=== PATIENT | female | born 1990 | race Caucasian/White ===

== ENCOUNTER 2020-09-09 06:19 | Emergency (ER) | payer OTHER, SELFPAY ==
[2020-09-09 06:29] VITALS: BP 118/72; BP 141/99; PULSE 82; PULSE 92; RESP 16; TEMP 36.1; O2SAT 100; O2SAT 95; BMI 37.0
[2020-09-09 06:36] VITALS: BP 141/99; PULSE 88; RESP 12; TEMP 36.1; O2SAT 100
--- NOTE | 2020-09-09 06:45 | ED_ITS ---
HPI - Nausea/Vomiting/Diarrhea General Chief complaint: Nausea/Vomiting/Diarrhea Stated complaint: n/v Time Seen by Provider: 09/09/20 06:45 Source: patient Mode of arrival: ambulatory History of Present Illness HPI Narrative: At 4:40am patient woke up because her baby was crying and when she got out of bed the room was spinning, nausea but no vomiting. Patient denies recent URI, tinnitus. No recent head trauma and no history of prior vertigo. Patient denies MD elicited complaint: nausea Onset (ago): hour(s) Associated nausea: Yes Related Data Previous Rx's Medication Instructions Recorded meclizine 25 mg PO TID PRN #20 tab 09/09/20 Allergies Allergy/AdvReac Type Severity Reaction Status Date / Time No Known Allergies Allergy Verified 09/09/20 06:28 Review of Systems Constitutional: Constitutional: Reports no additional constitutional complaints Eyes: Eyes: Reports no additional eye complaints ENT: Reports vertigo and Reports dizziness Cardiovascular: Cardiovascular: Reports no additional cardiovascular complaints Respiratory: Respiratory: Reports as per HPI Gastrointestinal: Gastrointestinal: Reports nausea Genitourinary: Genitourinary: Reports no additional female genitourinary complaints Musculoskeletal: Musculoskeletal: Reports no additional musculoskeletal com plaints Integumentary/Breasts: Skin/Breast: Denies rash Neurologic: Reports system reviewed and no additional complaints, except as documented, Reports vertigo, Reports dizziness and Denies Sensory deficit (Neuro) Psychiatric: Psychiatric: Denies anxiety [facility] Past Medical History Medical History (Updated 09/09/20 @ 09:19 by Maikol Soto MD) No known health problems Surgical History (Updated 09/09/20 @ 06:33 by Dania Carlos) No history of previous surgery Social History Social History Smoking Status: Never smoker Use of substances other than those prescribed or required for medical reasons: No Advance Directives: No Advance Directives Information Provided: No Physical Exam Vital Signs: Vital Signs: Last Vital Signs Temp 97 F 09/09/20 06:36 Pulse 88 09/09/20 06:36 Resp 12 09/09/20 06:36 BP 141/99 H 09/09/20 06:36 Pulse Ox 100 09/09/20 06:36 Body Mass Index 37.0 Const: General: healthy appearing Nutritional Appearance: average body habitus Orientation/consciousness: oriented to person and patient oriented x3 Limitations: no limitations HENMT: Head: Yes normal to inspection Ears: external ears normal and TM's normal bilaterally General nose exam: Normal external nose present Mouth: Normal oral and palatal mucosa present and oropharynx normal Throat: Yes posterior oropharynx normal Eyes: General: appearance normal, both eyes and all related structures Neck: Other: supple Neck: Yes normal visual inspection Chest: Chest palpation & inspection: normal inspection of the chest Resp: Auscultation: clear to auscultation bilaterally Cardio: Jugular venous distension: no JVD Rate: regular rate Rhythm: regular rhythm Heart sounds: S1 normal heart sound present and S2 normal heart sound present GI: Inspection: Yes normal to inspection Palpation (GI): Soft to palpation, nontender and No hepatosplenomegaly present Auscultation: normal bowel sounds : General: Yes no CVA tenderness Back/Spine/Pelvis: Back: no CVA tenderness Skin: General skin exam: no rashes or lesions noted Neuro: Other: no nystagmus on lateral gaze, positive Barrone on position movement General: oriented to person and patient oriented x3 Cranial nerves: Yes CN's II-XII intact bilaterally Motor exam (neuro): 5/5 motor strength present throughout Sensory Exam: No Sensory deficit (Neuro) Extrem: General: Yes normal to inspection Psych: Appearance: grossly normal Course Course Course Narrative: ambulated to the bathroom, feels better MDM - Nausea/Vomiting/Diarrhea MDM Narrative Medical decision making narrative: Patient with benign positional vertigo will dc on meclizine Lab Data Result diagrams: 09/09/20 07:08 09/09/20 07:08 Labs: Lab Results 09/09/20 09/09/20 09/09/20 Range/Units 07:08 07:08 07:45 WBC 9.7 (4.8-10.8) X10*3/uL RBC 4.63 (4.20-5.50) X10*6/uL Hgb 12.2 (12.0-16.0) g/dl Hct 38.5 (37-47) % MCV 83.2 (80-98) fL MCH 26.3 L (27.0-33.0) pg MCHC 31.7 (31.0-35.0) g/dl RDW 15.7 (11.0-16.0) % Plt Count 266 (160-400) X10*3/uL MPV 10.9 (9.4-12.3) fL Immature Gran % (Auto) 0.2 (0.0-0.4) % Neut % (Auto) 66.8 (45-73) % Lymph % (Auto) 21.0 (20-40) % [place] % (Auto) 10.5 (2-11) % Eos % (Auto) 1.3 (0-4) % Baso % (Auto) 0.2 (0-2) % Lymph # (Auto) 2.0 (1.2-4.9) X10*3/uL [place] # (Auto) 1.0 (0.1-1.2) X10*3/uL Eos # (Auto) 0.1 (0.0-0.4) X10*3/uL Baso # (Auto) 0.0 (0.0-0.2) X10*3/uL Abs Immat Gran (auto) 0.02 (0.00-0.03) X10*3/uL Absolute Neuts (auto) 6.5 (2.0-8.3) X10*3/uL Absolute Nucleated RBC 0.000 (0.0-0.012) X10*3/uL Nucleated RBC % (auto) 0.0 (0.0-0.2) /100WBC Sodium 137 (135-145) mmol/L Potassium 3.6 (3.3-5.1) mmol/l Chloride 105 (96-108) mmol/L Carbon Dioxide 26 (22-29) mmol/L Anion Gap 10 L (12-20) BUN 9 (9-16) mg/dL Creatinine 0.72 (0.5-1.4) mg/dL Estim Creat Clear Calc 132.2 Estimated GFR > 60 Random Glucose 90 (60-115) mg/dL Calcium 8.3 L (8.4-10.2) mg/dL Urine Color PINK Urine Appearance CLOUDY Urine pH 6.0 (5.0-8.0) Ur Specific [place] 1.015 (1.005-1.025) Urine Protein NEG (NEG-TRACE) MG/DL Urine Glucose (UA) NEG (NEG) MG/DL Urine Ketones NEG (NEG) MG/DL Urine Blood 3+ H (NEG) Urine Nitrite NEG (NEG) Ur Leukocyte Esterase NEG (NEG) Urine RBC TNTC H (0) /HPF Urine WBC 0-2 (0-4) /HPF Ur Squamous Epith Cells 1+ /LPF Urine Bacteria NONE /LPF Urine Test NEGATIVE (NEGATIVE) Discharge Plan Discharge Clinical Impression: Benign paroxysmal positional vertigo Qualifiers: Laterality: unspecified laterality Qualified Code(s): H81.10 - Benign paroxysmal vertigo, unspecified ear Patient Disposition: Home, Self-Care Instructions: Benign Paroxysmal Positional Vertigo (ED) Prescriptions: New meclizine 25 mg tablet 25 mg PO TID PRN (Reason: dizziness) Qty: 20 RF: 0
[2020-09-09 07:14] LABS: MANUAL DIFF FLAG NO
[2020-09-09 07:17] LABS: Basophils Percent Auto 0.2 % (0-2); Eosinophils Absolute Auto 0.1 X10*3/uL (0.0-0.4); Eosinophils Percent Auto 1.3 % (0-4); Hematocrit 38.5 % (37-47); Hemoglobin 12.2 g/dl (12.0-16.0); Imm Gran Abs Auto 0.02 X10*3/uL (0.00-0.03); Imm Gran Pct Auto 0.2 % (0.0-0.4); Mean Corpuscular HGB Conc 31.7 g/dl (31.0-35.0); Mean Corpuscular Hemoglobin 26.3 pg (27.0-33.0); Mean Corpuscular Volume 83.2 fL (80-98); Mean Platelet Volume 10.9 fL (9.4-12.3); Monocytes Percent Auto 10.5 % (2-11); Neutrophils Absolute Auto 6.5 X10*3/uL (2.0-8.3); Neutrophils Percent Auto 66.8 % (45-73); Platelet Count 266 X10*3/uL (160-400); Red Blood Count 4.63 X10*6/uL (4.20-5.50); Red Cell Distribution Width 15.7 % (11.0-16.0); White Blood Count 9.7 X10*3/uL (4.8-10.8)
[2020-09-09] MEDS: Meclizine HCl 25 MG TABLET 50 MG PO (07:31)
[2020-09-09] MEDS: 0.9 % Sodium Chloride 1,000 ML 999 ML IVCONT (07:32)
[2020-09-09] MEDS: ondansetron HCL 4 MG/2 ML VIAL IVPUSH (07:32)
[2020-09-09 07:42] LABS: Anion Gap 10 (12-20); Blood Urea Nitrogen 9 mg/dL (9-16); Calcium 8.3 mg/dL (8.4-10.2); Carbon Dioxide 26 mmol/L (22-29); Chloride 105 mmol/L (96-108); Creatinine Clr Calc Pharmacy 132.2; Estimated Glomerular Filt Rate > 60; Glucose Random 90 mg/dL (60-115); Potassium 3.6 mmol/l (3.3-5.1); Sodium 137 mmol/L (135-145)
[2020-09-09 07:53] LABS: Glucose Urine UA NEG (NEG); Leukocyte Esterase Urine NEG (NEG); Nitrite Urine NEG (NEG); Specific Gravity - Urine 1.015 (1.005-1.025); Urine Blood 3+ (NEG); Urine Ketones NEG (NEG); Urine Protein NEG (NEG-TRACE)
[2020-09-09 07:56] LABS: Appearance Urine CLOUDY; Color Urine PINK
[2020-09-09 07:57] LABS: UPreg QC Valid YES; Urine Pregnancy NEGATIVE (NEGATIVE)
[2020-09-09 08:02] LABS: RBC Urine TNTC /HPF (0); Squamous Epithelial Cell Urine 1+ /LPF; WBC Urine 0-2 /HPF (0-4)
== END 2020-09-09 09:28 | disposition home or self-care (01) ==
PROVIDERS: Emergency Provider Emergency Medicine; PCP Pediatrics
DX: H81.10 Benign paroxysmal vertigo, unspecified ear (principal); Z79.899 Other long term (current) drug therapy
CPT/HCPCS: 36415; 80048; 81001; 81025; 85025; 96361; 96374; 99284; J2405

== ENCOUNTER 2020-12-26 19:05 | Emergency (ER) | payer OTHER, SELFPAY ==
[2020-12-26 19:38] VITALS: BP 157/84; PULSE 81; RESP 18; TEMP 36.6; O2SAT 97; BMI 37.8
--- NOTE | 2020-12-26 20:14 | ED.EYEPROB ---
HPI - Eye Problem General Chief complaint: Eye Problems Stated complaint: red eye Time Seen by Provider: 12/26/20 20:14 Source: patient Mode of arrival: ambulatory Limitations: no limitations History of Present Illness HPI Narrative: Otherwise healthy 30-year-old female who denies significant past medical history presenting complaint of red area to the inner aspect of her cornea states she saw her eye doctor 5 days ago they did some tests on her eye and vision check told everything was okay might be a little bit of a dry eye. States the redness has improved however still feels a little irritated and would like this evaluated. There is no eye pain or sensation of foreign body. There is no discharge. chief complaint: eye redness Onset (ago): day(s) Onset description: gradual Duration: constant Place: home Associated symptoms: none Treatments Prior to Arrival: none Related Data Previous Rx's Medication Instructions Recorded meclizine 25 mg PO TID PRN #20 tab 09/09/20 erythromycin 0.5 inch OPHTHALMIC (EYE) BID #1 g 12/26/20 Allergies Allergy/AdvReac Type Severity Reaction Status Date / Time No Known Allergies Allergy Verified 09/09/20 06:28 Review of Systems Review of Systems: Constitutional: No Weight loss, No Fever, No Chills, No Night Sweats, No Fatigue, No Malaise ENT/Mouth: No Hearing loss, No Ear Pain, No Nasal Congestion, No Sinus Pain, No Hoarseness, No sore throat, No Rhinorrhea, No Swallowing Difficulty Eyes: No Eye Pain, No Swelling, + Redness, No Foreign Body, No Discharge, No Vision Changes Cardiovascular: No Chest Pain, No SOB, No Dyspnea on Exertion, No Orthopnea, No Edema, No Palpitations Respiratory: No Cough, No Sputum, No Wheezing, No Smoke Exposure, No Dyspnea Gastrointestinal: Negative Genitourinary: Negative Musculoskeletal: Negative Skin: No Skin Lesions, No rash Neuro: No Weakness, No Numbness, No Paresthesias, No Loss of Consciousness, No Dizziness, No Headache Psych: Negative Heme/Lymph: Negative Endocrine: Negative Yes all other systems are reviewed and are negative [facility] Past Medical History Medical History (Updated 12/26/20 @ 20:42 by Abimael Stacy NP) No known health problems Surgical History (Updated 09/09/20 @ 06:33 by Dania Carlos) No history of previous surgery Social History Social History Alcohol intake: never Smoking Status: Never smoker Smoked in Last 30 Days: No Advance Directives: No Advance Directives Information Provided: Yes Physical Exam Vital Signs: Vital Signs: Last Vital Signs Temp 97.9 F 12/26/20 19:38 Pulse 81 12/26/20 19:38 Resp 18 12/26/20 19:38 BP 157/84 H 12/26/20 19:38 Pulse Ox 97 12/26/20 19:38 Body Mass Index 37.8 Reviewed Const: General: cooperative, healthy appearing, comfortable, no acute distress, well developed, alert and awake HENMT: Head: Yes normal to inspection Ears: hearing grossly normal bilaterally Eyes: Other: Fluoro exam with Wood's lamp unremarkable. General: appearance normal, both eyes and all related structures Visual Dumont: normal visual dumont by confrontation Eyelids: Yes eyelids normal Conjunctivae: conjunctival abnormal (Left inner eye slightly erythematous.) left Sclerae: sclerae normal Corneas: corneas normal Pupils: Equal, round and reactive pupils present EOM: EOMs intact bilaterally Chest: Chest palpation & inspection: normal inspection of the chest and normal palpation of entire chest wall Resp: Effort & Inspection: normal respiratory effort, no audible wheezes, no cough and no respiratory distress Cardio: Jugular venous distension: no JVD Palpation: normal PMI Rate: regular rate Heart sounds: S1 normal heart sound present and S2 normal heart sound present Skin: General skin exam: no rashes or lesions noted, elasticity normal and turgor normal Wounds: no wounds Nails: normal Neuro: General: normal sensation to monofilament Cranial nerves: Yes Equal, round and reactive pupils present Psych: Appearance: grossly normal and well kempt Discharge Plan Discharge Clinical Impression: Acute allergic conjunctivitis Patient Disposition: Home, Self-Care Instructions: Conjunctivitis (ED) Additional Instructions: Your symptoms are more consistent with an allergy however for comfort will give you the eye antibiotic which will be used more of a ointment to keep the eye lubricated help with irritation. Follow-up with eye doctor as instructed Return if any concerns or symptoms Thank you Prescriptions: New erythromycin 5 mg/gram (0.5 %) ointment 0.5 inch ophthalmic (eye) BID Qty: 1 RF: 0 No Action meclizine 25 mg tablet 25 mg PO TID PRN (Reason: dizziness) Qty: 20 RF: 0 Referrals: Physician,Unknown [Primary Care Provider] - 2 days (Your eye doctor) Discharge Date/Time: 12/26/20 20:38
== END 2020-12-26 20:38 | disposition home or self-care (01) ==
PROVIDERS: Emergency Provider Emergency Medicine
DX: H10.12 Acute atopic conjunctivitis, left eye (principal); H57.12 Ocular pain, left eye
CPT/HCPCS: 99283; 99284

== ENCOUNTER → 2020-12-31 10:40 | Outpatient (BNVA) | payer OTHER, SELFPAY | PROVIDERS: Visit Provider Obstetrics & Gynecology ==

== ENCOUNTER 2021-03-15 03:23 | Emergency (ER) | payer OTHER, SELFPAY ==
--- NOTE | 2021-03-15 | ECG_ITS ---
Test Reason : CHEST PAIN Blood Pressure : / mmHG Vent. Rate : 088 BPM Atrial Rate : 088 BPM P-R Int : 156 ms QRS Dur : 086 ms QT Int : 372 ms P-R-T Axes : 040 009 047 degrees QTc Int : 450 ms Normal sinus rhythm Normal ECG No previous ECGs available Referred By: Generic ED Physician Electronically Signed By:Barney Aviles
[2021-03-15 03:33] VITALS: BP 145/79; PULSE 82; RESP 20; TEMP 37; O2SAT 100; BMI 37.6
--- NOTE | 2021-03-15 03:46 | ED.CHESTPAIN ---
HPI - Chest Pain General Chief Complaint: Chest Pain Stated Complaint: chest pain Time Seen by Provider: 03/15/21 03:42 Source: patient Mode of arrival: ambulatory Limitations: no limitations History of Present Illness HPI narrative: Patient comes emergency room complaining of chest pain for 1 month. Patient states she has been having substernal chest pain, nonradiating. Patient states tonight she was sleeping, started feeling pressure more than usual and came to emergency room. Patient denies shortness of breath. Patient states that her chest does not actually hurt, it feels like pressure. 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 Patient states she does not remember hurting herself or pulling a muscle. Related Data Home Medications Medication Instructions Recorded Confirmed No Known Home Meds 03/15/21 03/15/21 Allergies Allergy/AdvReac Type Severity Reaction Status Date / Time No Known Allergies Allergy Verified 02/06/21 10:55 Review of Systems Review of Systems: Constitutional : No Weight loss, No Fever, No Chills, No Night Sweats, No Fatigue, No Malaise ENT/Mouth : No Hearing loss, No Ear Pain, No Nasal Congestion, No Sinus Pain, No Hoarseness, No sore throat, No Rhinorrhea, No Swallowing Difficulty Eyes: No Eye Pain, No Swelling, No Redness, No Foreign Body, No Discharge, No Vision Changes Cardiovascular complaining of substernal chest pressure, No SOB, No Dyspnea on Exertion, No Orthopnea, No Edema, No Palpitations Respiratory : No Cough, No Sputum, No Wheezing, No Smoke Exposure, No Dyspnea Gastrointestinal : No Nausea, No Vomiting, No Diarrhea, No Constipation, No abdominal Pain, No Hematochezia, No Melena Genitourinary : no irregular bleeding, No Dysuria, No Urinary Frequency, No Hematuria, No Urinary Incontinence, No Urgency, No Flank Pain, No Urinary Flow Changes, No Hesitancy Musculoskeletal : No joint pain, No Myalgias, No Joint Swelling Skin : No Skin Lesions, No rash Neuro : No Weakness, No Numbness, No Paresthesias, No Loss of Consciousness, No Dizziness, No Headache Psych : No Anxiety/Panic, No Depression, No SI/HI/AH/VH, No Social Issues, Heme/Lymph: No Bruising, No Bleeding,No Lymphadenopathy Endocrine : No Polyuria, No Polydipsia, No Temperature Intolerance [facility] Past Medical History Medical History No known health problems Surgical History No history of previous surgery Family History Family History (Updated 12/31/20 @ 10:42 by Risa Carbajal MA) Maternal Grandmother Breast CA Maternal Aunt Breast CA Social History Social History Alcohol intake: never Smoking Status: Never smoker Use of substances other than those prescribed or required for medical reasons: No Advance Directives: No Advance Directives Information Provided: No Patient : No Physical Exam Vital Signs: Vital Signs: Last Vital Signs Temp 98.6 F 03/15/21 03:33 Pulse 82 03/15/21 03:33 Resp 20 03/15/21 03:33 BP 145/79 H 03/15/21 03:33 Pulse Ox 100 03/15/21 03:33 Body Mass Index 37.6 Appearance: Alert. Oriented X3. No acute distress. Eyes: Pupils equal, round and reactive to light. ENT: Pharynx normal. Neck: Normal inspection. Neck supple. No lymph nodes noted. No crepitus CVS: Normal heart rate and rhythm. Pulses normal. Normal S1 and S2 Respiratory: No respiratory distress. Breath sounds normal. No Wheezing. No rales Abdomen: Soft and nontender. No rigidity. No distention. good BS x4 Skin: Skin warm and dry. Normal skin color. Normal skin turgor. Extremities: No lower extremity edema. No lower extremity edema. No Lacerations. No Rash Neuro: Oriented X 3. No motor deficit. No sensory deficit. Moving all extermities. No slurred speech. Course Course Course Narrative: I discussed the labs and EKG with the patient, patient likely having musculoskeletal pain. Patient's troponin negative. Patient struck to follow-up with her primary care physician. MDM - Chest Pain Lab Data Result diagrams: 03/15/21 04:02 03/15/21 04:01 Labs: Lab Results 03/15/21 03/15/21 03/15/21 Range/Units 04:01 04:02 04:02 WBC 9.6 (4.8-10.8) X10*3/uL RBC 4.48 (4.20-5.50) X10*6/uL Hgb 12.3 (12.0-16.0) g/dl Hct 38.3 (37-47) % MCV 85.5 (80-98) fL MCH 27.5 (27.0-33.0) pg MCHC 32.1 (31.0-35.0) g/dl RDW 14.9 (11.0-16.0) % Plt Count 255 (160-400) X10*3/uL MPV 10.8 (9.4-12.3) fL Immature Gran % (Auto) 0.2 (0.0-0.4) % Neut % (Auto) 49.7 (45-73) % Lymph % (Auto) 37.7 (20-40) % [place] % (Auto) 10.6 (2-11) % Eos % (Auto) 1.7 (0-4) % Baso % (Auto) 0.1 (0-2) % Lymph # (Auto) 3.6 (1.2-4.9) X10*3/uL [place] # (Auto) 1.0 (0.1-1.2) X10*3/uL Eos # (Auto) 0.2 (0.0-0.4) X10*3/uL Baso # (Auto) 0.0 (0.0-0.2) X10*3/uL Abs Immat Gran (auto) 0.02 (0.00-0.03) X10*3/uL Absolute Neuts (auto) 4.8 (2.0-8.3) X10*3/uL Absolute Nucleated RBC 0.000 (0.0-0.012) X10*3/uL Nucleated RBC % (auto) 0.0 (0.0-0.2) /100WBC Sodium 139 (135-145) mmol/L Potassium 3.7 (3.3-5.1) mmol/L Chloride 105 (96-108) mmol/L Carbon Dioxide 28 (22-29) mmol/L Anion Gap 10 L (12-20) BUN 12 (9-16) mg/dL Creatinine 0.68 (0.5-1.4) mg/dL Estim Creat Clear Calc 141.2 Estimated GFR > 60 Random Glucose 86 (60-115) mg/dL Calcium 8.8 D (8.4-10.2) mg/dL Troponin I High Sens < 3.5 (<3.5-17.0) ng/L Scores Heart Score History: -0- slightly suspicious ECG: -0- normal Age: -0- < or = 45 Risk factory: -0- no risk factors known Troponin: -0- < or = normal limit Score: 0 Risk: 1.7% Discharge Plan Discharge Clinical Impression: Atypical chest pain Patient Disposition: Home, Self-Care Instructions: Chest Pain (ED) Additional Instructions: Please follow-up with your primary care physician tomorrow. If you have any worsening or new symptoms, please return to the emergency room or call 911 Prescriptions: No Action No Known Home Meds RF: 0
[2021-03-15] MEDS: Aspirin Enteric Coated 325 MG TABLET.DR PO (03:56)
[2021-03-15 04:14] LABS: Basophils Percent Auto 0.1 % (0-2); Eosinophils Absolute Auto 0.2 X10*3/uL (0.0-0.4); Eosinophils Percent Auto 1.7 % (0-4); Hematocrit 38.3 % (37-47); Hemoglobin 12.3 g/dl (12.0-16.0); Imm Gran Abs Auto 0.02 X10*3/uL (0.00-0.03); Imm Gran Pct Auto 0.2 % (0.0-0.4); Lymphocytes Absolute Auto 3.6 X10*3/uL (1.2-4.9); Lymphocytes Percent Auto 37.7 % (20-40); MANUAL DIFF FLAG NO; Mean Corpuscular HGB Conc 32.1 g/dl (31.0-35.0); Mean Corpuscular Hemoglobin 27.5 pg (27.0-33.0); Mean Corpuscular Volume 85.5 fL (80-98); Mean Platelet Volume 10.8 fL (9.4-12.3); Monocytes Percent Auto 10.6 % (2-11); Neutrophils Absolute Auto 4.8 X10*3/uL (2.0-8.3); Neutrophils Percent Auto 49.7 % (45-73); Platelet Count 255 X10*3/uL (160-400); Red Blood Count 4.48 X10*6/uL (4.20-5.50); Red Cell Distribution Width 14.9 % (11.0-16.0); White Blood Count 9.6 X10*3/uL (4.8-10.8)
[2021-03-15 04:35] LABS: Anion Gap 10 (12-20); Blood Urea Nitrogen 12 mg/dL (9-16); Calcium 8.8 mg/dL (8.4-10.2); Carbon Dioxide 28 mmol/L (22-29); Chloride 105 mmol/L (96-108); Creatinine Clr Calc Pharmacy 141.2; Estimated Glomerular Filt Rate > 60; Glucose Random 86 mg/dL (60-115); Potassium 3.7 mmol/L (3.3-5.1); Sodium 139 mmol/L (135-145)
[2021-03-15 04:38] LABS: Troponin-I High Sensitivity < 3.5 ng/L (<3.5-17.0)
== END 2021-03-15 04:59 | disposition home or self-care (01) ==
PROVIDERS: Emergency Provider Emergency Medicine; PCP Pediatrics
DX: R07.89 Other chest pain (principal)
CPT/HCPCS: 36415; 80048; 84484; 85025; 93005; 99284

== ENCOUNTER 2021-08-18 23:06 | Emergency (ER) | payer OTHER, SELFPAY ==
[2021-08-18 23:10] VITALS: BP 142/82; PULSE 114; RESP 18; TEMP 37; O2SAT 98; BMI 33.7
[2021-08-18 23:36] LABS: IDNOW Serial# 9DD0AD1C; Strep A Nucleic Acid Negative (Negative)
[2021-08-18 23:41] LABS: COVID-19 Test Negative (Negative)
--- NOTE | 2021-08-19 00:09 | ED.URI ---
HPI - URI/Sore Throat General Chief Complaint: Upper Respiratory Symptoms Stated Complaint: flu sypmtoms Time Seen by Provider: 08/19/21 00:05 Source: patient Mode of arrival: ambulatory History of Present Illness HPI Narrative: 31-year-old female with no significant past medical history presenting to the ED c/o sore throat since last night associated painful swallowing. Denies fever, chills, ear pain, cough, difficulty/inability to stool, recent travel, sick contacts, SOB, CP MD elicited complaint: sore throat Related Data Previous Rx's Medication Instructions Recorded acetaminophen 500 mg tablet 500 mg PO Q6H PRN #20 tab 08/19/21 (Tylenol Extra Strength) amoxicillin 875 mg-potassium 1 tab PO Q12H 7 Days #14 tab 08/19/21 clavulanate 125 mg tablet (Augmentin) naproxen 500 mg tablet 500 mg PO BID PRN 10 Days #20 tab 08/19/21 Allergies Allergy/AdvReac Type Severity Reaction Status Date / Time No Known Allergies Allergy Verified 02/06/21 10:55 Review of Systems Review of Systems: Constitutional: No Fever, No Chills ENT/Mouth: No Ear Pain, No Nasal Congestion, No Sinus Pain, No Hoarseness, + sore throat, No Rhinorrhea, No Swallowing Difficulty Cardiovascular: No Chest Pain, No SOB Respiratory: No Cough, No Sputum, No Wheezing Gastrointestinal: No Nausea, No Vomiting, No Diarrhea, No Constipation, No Abdominal pain Musculoskeletal: No joint pain, No Myalgias, No Joint Swelling Skin: No Skin Lesions, No rash Neuro: No Weakness, No Numbness, No Paresthesias Yes all other systems are reviewed and are negative [facility] Past Medical History Attestation statement: The following information was validated with the patient. Medical History No known health problems Surgical History No history of previous surgery Family History Family History (Updated 12/31/20 @ 10:42 by Risa Carbajal MA) Maternal Grandmother Breast CA Maternal Aunt Breast CA Social History Social History Alcohol intake: never Advance Directives: No Advance Directives Information Provided: Yes Patient : No Physical Exam Vital Signs: Vital Signs: Last Vital Signs Temp 98.6 F 08/18/21 23:10 Pulse 114 H 08/18/21 23:10 Resp 18 08/18/21 23:10 BP 142/82 H 08/18/21 23:10 Pulse Ox 98 08/18/21 23:10 Body Mass Index 33.7 Const: General: cooperative, healthy appearing, no acute distress, well developed, alert and awake Orientation/consciousness: patient oriented x3 Limitations: no limitations HENMT: Other: + bilateral tonsillar erythema, swelling, and exudates Head: Yes normal to inspection Ears: hearing grossly normal bilaterally, external ears normal and TM's normal bilaterally General nose exam: Normal external nose present Face and sinus: Yes normal facial exam Mouth: Normal oral and palatal mucosa present Throat: No peritonsillar mass, No uvula laterally displaced and No uvular edema Eyes: General: appearance normal, both eyes and all related structures EOM: EOMs intact bilaterally Neck: Other: + submandibular lymphadenopathy Neck: Yes normal visual inspection Resp: Effort & Inspection: normal respiratory effort and no stridor Auscultation: clear to auscultation bilaterally, no rales, no rhonchi and no wheezes Cardio: Rate: regular rate Heart sounds: S1 normal heart sound present and S2 normal heart sound present GI: Inspection: Yes normal to inspection Skin: Rashes: no rashes Wounds: no wounds Neuro: General: patient oriented x3 Gait exam (Neuro): Normal gait present Extrem: General: Yes normal to inspection Course Course Course Narrative: -covid19 negative and rapid strep negative >> clinically patient with strep pharyngitis. Given 1st dose of Augmentin and Motrin in the ED MDM - URI/Sore Throat MDM Narrative Medical decision making narrative: 31-year-old female with no significant past medical history presenting to the ED c/o sore throat since last night associated painful swallowing. On exam initially tachycardic, NAD/nontoxic-appearing, physical exam consistent with strep pharyngitis, lungs CTA. Will obtain rapid strep and COVID-19 testing Medical Records Attestation: I reviewed the patient's medical records. Lab Data Attestation: I reviewed the patient's lab results. Labs: Lab Results 08/18/21 08/18/21 Range/Units 23:18 23:18 COVID-19 ([place]) Negative (Negative) COVID-19 Clin Com See Note S. pyogenes GrpA CELESTE Negative (Negative) Discharge Plan Discharge Clinical Impression: Pharyngitis Qualifiers: Pharyngitis/tonsillitis etiology: streptococcus Qualified Code(s): J02.0 - Streptococcal pharyngitis Patient Disposition: Home, Self-Care Instructions: Pharyngitis (ED) Additional Instructions: You have strep throat. You tested negative for COVID-19 Augmentin is an antibiotic, please take as prescribed In addition naproxen as an anti-inflammatory pain medication, take with food Also take Tylenol Gargle with warm salt water Please follow-up with your primary care doctor Avoid sharing drinks/saliva as your contagious for 24 hours until on antibiotics Prescriptions: New acetaminophen [Tylenol Extra Strength] 500 mg tablet 500 mg PO Q6H PRN (Reason: pain or fever) Qty: 20 RF: 0 naproxen 500 mg tablet 500 mg PO BID PRN (Reason: pain) 10 Days Qty: 20 RF: 0 amoxicillin-pot clavulanate [Augmentin] 875-125 mg tablet 1 tab PO Q12H 7 Days Qty: 14 RF: 0 Referrals: Mae Leon DO [Primary Care Provider] - 2 days Stand Alone Forms: Work/School Release
[2021-08-19] MEDS: Ibuprofen 600 MG TABLET PO (00:20)
[2021-08-19] MEDS: Amoxicillin/Potassium Clav 875 MG TABLET PO (00:20)
[2021-08-19 00:25] VITALS: BP 136/79; PULSE 95; RESP 16; TEMP 37; O2SAT 99
== END 2021-08-19 00:45 | disposition home or self-care (01) ==
PROVIDERS: Emergency Provider Internal Medicine; PCP Pediatrics
DX: J02.0 Streptococcal pharyngitis (principal); Z20.822 Contact with and (suspected) exposure to COVID-19
CPT/HCPCS: 36415; 87635; 87651; 99283; 99284

== ENCOUNTER 2021-10-30 04:08 | Emergency (ER) | payer OTHER, SELFPAY ==
[2021-10-30 04:16] VITALS: BP 142/85; PULSE 112; RESP 18; TEMP 37.9; O2SAT 98; BMI 34.8
[2021-10-30 04:40] LABS: COVID-19 Test Negative (Negative); IDNOW Serial# 9DD0AD1C
[2021-10-30 05:12] VITALS: BP 139/98; PULSE 98; RESP 13; TEMP 36.9; O2SAT 96
--- NOTE | 2021-10-30 05:38 | ED_ITS ---
HPI - General Adult General Chief complaint: General Medical Stated complaint: Covid symptoms Time Seen by Provider: 10/30/21 05:36 Source: patient History of Present Illness HPI narrative: This is a 31-year-old female who complains of URI symptoms for the last 5 days. The patient has had a cough which has been productive but is more dry now. She states the cough was worse yesterday but has been improving. She has had body aches. She has noted some nasal congestion but denies sore throat. She has had nausea but denies any vomiting or diarrhea. She denies shortness of breath. Related Data Previous Rx's Medication Instructions Recorded acetaminophen 500 mg tablet 500 mg PO Q6H PRN #20 tab 08/19/21 (Tylenol Extra Strength) amoxicillin 875 mg-potassium 1 tab PO Q12H 7 Days #14 tab 08/19/21 clavulanate 125 mg tablet (Augmentin) naproxen 500 mg tablet 500 mg PO BID PRN 10 Days #20 tab 08/19/21 Allergies Allergy/AdvReac Type Severity Reaction Status Date / Time No Known Allergies Allergy Verified 02/06/21 10:55 Review of Systems Constitutional: Constitutional: Reports fever(s) ENT: Reports nasal congestion and Denies sore throat Cardiovascular: Cardiovascular: Denies dyspnea Respiratory: Respiratory: Reports cough and Denies dyspnea Gastrointestinal: Gastrointestinal: Reports nausea Neurologic: Denies Sensory deficit (Neuro) [facility] Past Medical History Medical History No known health problems Surgical History No history of previous surgery Family History Family History (Updated 12/31/20 @ 10:42 by Risa Carbajal MA) Maternal Grandmother Breast CA Maternal Aunt Breast CA Social History Social History Alcohol intake: never Advance Directives: No Patient : No Physical Exam Vital Signs: Vital Signs: Last Vital Signs Temp 98.4 F 10/30/21 05:12 Pulse 98 10/30/21 05:12 Resp 13 10/30/21 05:12 BP 139/98 H 10/30/21 05:12 Pulse Ox 96 10/30/21 05:12 BMI result Body Mass Index 34.8 Const: General: cooperative, no acute distress and alert Orientation/consciousness: patient oriented x3 HENMT: Head: Yes normal to inspection Eyes: General: appearance normal, both eyes and all related structures Eyelids: Yes eyelids normal Conjunctivae: conjunctivae normal Pupils: Equal, round and reactive pupils present Neck: Neck: Yes normal visual inspection and Yes supple Chest: Chest palpation & inspection: normal inspection of the chest Resp: Effort & Inspection: normal respiratory effort Auscultation: clear to auscultation bilaterally Cardio: Rate: regular rate Rhythm: regular rhythm Heart sounds: S1 normal heart sound present, S2 normal heart sound present, no gallops, no murmurs and no rubs GI: Palpation (GI): Soft to palpation, nontender and Other GI palpation findings present (Non-distended) Auscultation: normal bowel sounds Skin: General skin exam: no rashes or lesions noted Neuro: General: patient oriented x3, no focal motor deficits and CN's II-XI intact bilaterally Cranial nerves: Yes Equal, round and reactive pupils present Cognition (Neuro): normal cognition Motor exam (neuro): 5/5 motor strength present throughout Sensory Exam: No Sensory deficit (Neuro) Extrem: General: Yes normal to inspection and Yes no pedal edema Psych: Appearance: grossly normal Affect: normal affect Medical Decision Making MDM Narrative Medical decision making narrative: Patient with URI symptoms including cough and some associated body aches for about 6 days. Patient has a normal exam. COVID test negative. Patient's cough is improving, no shortness of breath. Likely viral syndrome, recommend symptomatic treatment Lab Data Lab results reviewed: Yes I reviewed the patient's lab results. Labs: Lab Results 10/30/21 Range/Units 04:21 COVID-19 ([facility]) Negative (Negative) COVID-19 Clin Com See Note Discharge Plan Discharge Clinical Impression: Acute viral syndrome Patient Disposition: Home, Self-Care Instructions: Upper Respiratory Infection (ED), Viral Syndrome (ED) Additional Instructions: Drink plenty of fluids. Use acetaminophen for fever or aches. Use [id number] cough medicine such as Robitussin DM for cough. A turn for any new or worsened symptoms such as worsening cough, shortness of breath. Prescriptions: No Action acetaminophen [Tylenol Extra Strength] 500 mg tablet 500 mg PO Q6H PRN (Reason: pain or fever) Qty: 20 RF: 0 naproxen 500 mg tablet 500 mg PO BID PRN (Reason: pain) 10 Days Qty: 20 RF: 0 amoxicillin-pot clavulanate [Augmentin] 875-125 mg tablet 1 tab PO Q12H 7 Days Qty: 14 RF: 0
== END 2021-10-30 06:00 | disposition home or self-care (01) ==
PROVIDERS: Emergency Provider Emergency Medicine
DX: B34.9 Viral infection, unspecified (principal); Z20.822 Contact with and (suspected) exposure to COVID-19; R05.9 Cough, unspecified
CPT/HCPCS: 36415; 87635; 99283; 99284

== ENCOUNTER 2025-07-16 15:45 | Emergency (ER) | payer OTHER, SELFPAY ==
--- OUTSIDE RECORDS SUMMARY | 2025-07-16 19:11 | XMS_ITS | Clinical Summary ---
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 Gastritis DX:Gastritis Obese DX:Obese Family History Medical History Relation Name Comments No Known Problems Brothgabrielle Vides No Known Problems Father Storm Breast cancer Maternal Grandmother Joycelyn Diabetes Maternal Grandmother Jyocelyn Hypertension Maternal Grandmother Joycelyn Hyperthyroidism Maternal Grandmother Joycelyn Arthritis Mother Carol Hyperthyroidism Mother Carol Breast cancer Mother's side 1 aunt and co usin Other: Lupus Mother's side 2 cousin No Known Problems Paternal Grandfather Ean Diabetes Paternal Grandmother Iluminata Hypertension Paternal Grandmother Iluminata Other: CKD-on dialysis Paternal Grandmother Iluminata Relation Name Status Comments Brothgabrielle Vides Alive Father Storm Alive Maternal Grandfather Aj Maternal Grandmother Joycelyn Alive Mother Carol Alive Mother's side 1 Mother's side 2 cousin Alive Paternal Grandfather Ean Paternal Grandmother Iluminata Alive Social History Tobacco Use Types Packs/Day Years Used Date Smoking Tobacco: Never Smokeless Tobacco: Never Alcohol Use Standard Drinks/Week Comments No 0 (1 standard drink = 0.6 oz pur e alcohol) Comments Unknown Sex and Gender Information Value Date Recorded Sex Assigned at Not on file Legal Sex Female 12:23 AM EST Gender Identity Not on file Sexual Orientation Not on file Obstetrics History Plan of Treatment Health Maintenance Due Date Last Done Comments Hepatitis B Vaccines (1 of 3 - 19+ 3-dose series) 2011 Cervical Cancer Screening: P ap Smear 11/30/2021 11/30/2018 HIV Screening 10/03/2022 Hepatitis C Screening 10/03/2022 Social Influencers of Health Screening 10/03/2022 Depression Screening 10/31/2024 COVID-19 Vaccine (1 - 2023-2 5 season) 2025 Influenza Vaccine (#1) 2025 07/25/2019 DTaP,Tdap,and Td Vaccines (2 - Td or Tdap) 07/25/2029 07/25/2019 HIB Vaccines Aged Out No longer eligi ble based on patient's age to complete this topic HPV Vaccines Aged Out No longer eligi ble based on patient's age to complete this topic Hepatitis A Vaccines Aged Out No long er eligible based on patient's age to complete this topic IPV Vaccines Aged Out No longer eligi ble based on patient's age to complete this topic MMR Vaccines Aged Out No longer eligi ble based on patient's age to complete this topic Meningococcal ACWY Vaccine Aged Out N o longer eligible based on patient's age to complete this topic Meningococcal B Vaccine Aged Out No l onger eligible based on patient's age to complete this topic Pneumococcal Vaccine: Pediat rics (0 to 5 Years) and At-Risk Patients (6 to 49 Years) Aged Out No longer eligi ble based on patient's age to complete this topic RSV Immunization Patients Un sheila 20 months Aged Out No longer eligible b ased on patient's age to complete this topic Varicella Vaccines Aged Out No longer eligible based on patient's age to complete this topic Procedures Procedure Name Priority Date/Time Associated Diagnosis Comments PAP SMEAR Routine 11/30/2018 from Last 3 Months or Most Recently Relevant to Health Maintenance Results * Pap smear (11/30/2018) 11/30/2018 Narrative HISTORICAL TESTING LAB RESULTING AGENCY - 12/11/2018 11:39 AM EST [id number] THINPREP PAP, IMAGED: ATYPICAL SQUAMOUS CELLS OF UNDETERMINED SIGNIFICANCE (ASCUS) . ABUNDANT ACUTE INFLAMMATION. VENTURA DEMOND GE , CT(ASCP) (CASE SCREENED 12 04 2018) JESS PERSAUD M.D. , PATHOLOGIST (CASE ELECTRONICALLY SIGNED 12 11 2018) RESULT OF APTIMA HIGH RISK HPV ASSAY: HIGH RISK HPV: POSITIVE (SEROTYPES 16,18,31,33,35,39,45,51,52,56,58,59,66,68) COMPLETED ON 2018-12-08 ADEQUACY: SATISFACTORY ENDOCERVICAL/TRANSFORMATION ZONE COMPONENT PRESENT. SOURCE: THINPREP PAP HPV IF ASCUS, CERVICAL, IMAGED CLINICAL INFORMATION: HPV IF DIAGNOSIS OF ASCUS. LMP 11/25/18, HORMONES, HX ASCUS IN OR [facility] LAB CYTOLOGY ORDERABLES Final Result HISTORICAL TESTING LAB RESULTING AGENCY from Last 3 Months or Most Recently Relevant to Health Maintenance Care Teams Wet End Helper Relationship Specialty Start Date End Date Mae Leon DO [address] [place] [address] PCP - General Pediatrics 08/02/19
== END 2025-07-16 17:11 | disposition left against medical advice (07) ==
PROVIDERS: Emergency Provider Emergency Medicine; PCP Pediatrics
DX: Z53.21 Procedure and treatment not carried out due to patient leaving prior to being seen by health care provider (principal)

== ENCOUNTER 2025-10-02 10:33 | Outpatient (REF) | payer OTHER, SELFPAY ==
--- OUTSIDE RECORDS SUMMARY | 2025-10-02 13:13 | XMS_ITS | Clinical Summary ---
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 Role Phone Mae Leon Primary Care [...] cancer Maternal Grandmother Joycelyn Diabetes Maternal Grandmother Joycelyn Hypertension Maternal Grandmother Joycelyn Hyperthyroidism Maternal Grandmother [...] of 3 - 19+ 3-dose series) 2011 HPV Vaccines (1 - 3-dose SCD M series) 2019 Cervical Cancer Screening: P ap Smear 11/30/2021 11/30/2018 HIV Screening 10/03/2022 Hepatitis C Screening 10/03/2022 Social Influencers of Health Screening 10/03/2022 Depression Screening 10/31/2024 COVID-19 Vaccine (1 - 2024-2 6 season) 2025 Influenza Vaccine (#1) 2025 07/25/2019 DTaP,Tdap,and Td Vaccines (2 - Td or Tdap) 07/25/2029 07/25/2019 RSV Immunization Adult Patie nts (1 - 1-dose 75+ series) 2067 HIB Vaccines Aged Out No longer eligi [...] RESULTING AGENCY - 12/11/2018 11:39 AM EST [id number] THINPREP PAP, IMAGED: ATYPICAL SQUAMOUS CELLS OF UNDETERMINED SIGNIFICANCE (ASCUS) . ABUNDANT ACUTE INFLAMMATION. AUDREY GE , PHILLIP(ASCP) (CASE SCREENED 12 04 2018) JESS PERSAUD M.D. , PATHOLOGIST (CASE ELECTRONICALLY SIGNED 12 11 2018) RESULT OF APTIMA HIGH RISK HPV ASSAY: HIGH RISK HPV: POSITIVE (SEROTYPES 16,18,31,33,35,39,45,51,52,56,58,59,66,68) COMPLETED ON 2018-12-08 ADEQUACY: SATISFACTORY ENDOCERVICAL/TRANSFORMATION ZONE COMPONENT PRESENT. SOURCE: THINPREP PAP HPV IF ASCUS, CERVICAL, IMAGED CLINICAL INFORMATION: HPV IF DIAGNOSIS OF ASCUS. 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
[2025-10-02 22:48] LABS: Bacterial Vaginosis PCR NEGATIVE (Negative); Candida Group PCR DETECTED (Not Detect); Candida glab krusei PCR NOT DETECTED (Not Detect); Trichomonas vaginalis PCR NOT DETECTED (Not Detect)
[2025-10-02 23:32] LABS: CT PCR NOT DETECTED (Not Detect.); NG PCR NOT DETECTED (Not Detect.)
== END 2025-10-02 10:34 | disposition home or self-care (01) ==
LOC: HO.LNP 10:33
PROVIDERS: PCP Pediatrics; Visit Provider Advanced Practice Midwife
DX: N93.8 Other specified abnormal uterine and vaginal bleeding (principal); N76.0 Acute vaginitis; R10.23 Pelvic and perineal pain bilateral; Z20.2 Contact with and (suspected) exposure to infections with a predominantly sexual mode of transmission; Z79.1 Long term (current) use of non-steroidal anti-inflammatories (NSAID)
CPT/HCPCS: 81515; 87491; 87591

== ENCOUNTER 2025-10-02 10:33 | Outpatient (AMB) | payer OTHER, SELFPAY ==
--- NOTE | 2025-10-02 10:40 | A.OFFVIS_ITS ---
Vital Signs 10/02/25 10:43 Height 5 ft 4 in Weight 205 lb BMI 35.2 BP 126/72 Intake Visit Reasons: DUB Allergies No Known Allergies Allergy (Verified 10/02/25 10:43) Medication List - Last Reconciled 10/02/25 by Laine Burnette CNM phentermine (Lomaira) 8 mg PO TID HPI Comments Details: Patient presents today with concerns of irregular bleeding that is prolonged at times for the past several and passing clots, dime size and quarter-size. She had been taking control pills but recently stopped approximately 6 months ago because she stopped getting her period She is not planning for , her last intercourse was 5-6 days ago. She is not consistent with condoms. She is with partner of 8 years. She describes the pain as cramping in radiating to her low back. Pain scale of 9/10. She takes Advil with good effect brings the pain level down to a 3/10. She reports on day 3 of the period is the worst She is not interested in any alternative LARC or restarting the control pills at this time. She also reports having vaginal itching and discharge for the past few weeks [facility] Medical History No known health problems Surgical History No history of previous surgery Family History Maternal Grandmother Breast CA Maternal Aunt Breast CA Social History Alcohol intake: never Patient Tobacco Use Status: Never used Tobacco Female Reproductive History Menstrual Age of Menarche: 15 Duration of menses: 3-5 days Date of last menstrual period: 09/15/25 control method: none Total pregnancies: 4 Full term: 3 Ab spontaneous: 1 History of abnormal pap smear: No Review of Systems Const Reports no additional complaints Eyes Reports no additional complaints ENT Reports no additional complaints Card Reports no additional complaints Resp Reports no additional complaints GI Reports no additional complaints Reports as per HPI Skin/Breast Reports system reviewed and no additional complaints, except as documented Physical Exam Vital Signs: Last Vital Signs BP 126/72 12/03/25 10:43 BMI result Body Mass Index 35.2 Const General: cooperative and healthy appearing Orientation/consciousness: patient oriented x3 HEENT Head: Yes normocephalic Resp Effort & Inspection: normal respiratory effort and able to speak in complete sentences Other: [ ] External Female Exam: normal external appearance and normal appearance of the urethra Speculum Exam - Vagina: normal appearance of the vagina and abnormal vaginal discharge (thick white) Speculum Exam - Cervix: normal appearance of the cervix and nontender Bimanual exam- vagina & uterus: No Cervical tenderness present Bimanual Exam- Adnexa, other: No adnexal tenderness Skin General skin exam: no rashes or lesions noted Neuro General: patient oriented x3 Psych Affect: normal affect Results Reviewed Results Reviewed: she has negative urine hcg today Assessment & Plan Assessment & Plan (1) Dysfunctional uterine bleeding: Code(s): N93.8 - Other specified abnormal uterine and vaginal bleeding (2) Pelvic pain: Code(s): R10.20 - Pelvic and perineal pain unspecified side Qualifiers: Laterality: bilateral Qualified Code(s): R10.23 - Pelvic and perineal pain bilateral Plan: gc/ct screen Pelvic sono (3) Acute vaginitis: Code(s): N76.0 - Acute vaginitis Plan: BV panel vag swab Plan Cont NSAIDs as needed for discomfort Heat as needed Consider re-starting BCP Pt is overdue fro ANNUAL and will vishal with in the next month Return 1 week after sono to review results and plan of care Orders: Orders US pelvic and transvaginal 1 Week N93.8 - Other specified abnormal uterine and vaginal bleeding CT NG by PCR Vag/Cerv Today N93.8 - Other specified abnormal uterine and vaginal bleeding, R10.20 - Pelvic and perineal pain unspecified side Bacterial Vaginosis Panel Today N76.0 - Acute vaginitis AMB HCG Urine Test Today N93.8 - Other specified abnormal uterine and vaginal bleeding Medications: Discontinued naproxen Discontinued Reason: Patient Completed Course 500 mg PO BID 10 days PRN 20 tabs 0RF pain acetaminophen (Tylenol Extra Strength) Discontinued Reason: Patient Completed Course 500 mg PO Q6H PRN 20 tabs 0RF pain or fever amoxicillin-pot clavulanate 875-125 mg (Augmentin) Discontinued Reason: Patient Completed Course 1 tab PO Q12H 7 days 14 tabs 0RF Coding Level of Care Code Est Pt Level 4 (01348) Diagnoses Dysfunctional uterine bleeding N93.8 Bilateral pelvic pain R10.23 Laterality: bilateral Acute vaginitis N76.0
[2025-10-02 10:43] VITALS: BP 126/72; BMI 35.2
== END 2025-10-02 11:05 | disposition home or self-care (01) ==
LOC: HO.HWSM 10:33
PROVIDERS: PCP Pediatrics; Visit Provider Advanced Practice Midwife
DX: N93.8 Other specified abnormal uterine and vaginal bleeding (principal); R10.23 Pelvic and perineal pain bilateral; N76.0 Acute vaginitis
CPT/HCPCS: 99214